=== PATIENT | male | born 1990 | race Caucasian/White ===

== ENCOUNTER → 2021-09-26 | Outpatient (CLI) | payer OTHER ==
[~2021-09-26] MED LIST: ANTACID; CEPH500 PO; HYDACE5 PO; Norco 5-325 Ta1 EACH PO; PROBIOTIC1 EAC1 PO; SULTRIDS PO
== END | disposition home or self-care (01) ==
LOC: LAB SHORT 14:00
DX: K21.9 Gastro-esophageal reflux disease without esophagitis (principal)
CPT/HCPCS: 87338